=== PATIENT | male | born 1995 | race American Indian/Alaskan Native ===

== ENCOUNTER 2022-02-17 12:48 | Emergency (ER) | payer OTHER ==
[2022-02-17 12:53] VITALS: BP 132/78
--- NOTE | 2022-02-17 14:05 | XRay Report ---
RIGHT ANKLE 3 VIEW(S) INDICATION / CLINICAL INFORMATION: foot injury COMPARISON: None available. FINDINGS: BONES / JOINT(S): No acute fracture or subluxation. No significant arthritis. SOFT TISSUES: No soft tissue defect is noted overlying the posterior aspect of the heel. ADDITIONAL FINDINGS: None. RIGHT FOOT 3 VIEW(S) INDICATION / CLINICAL INFORMATION: foot injury COMPARISON: None available. FINDINGS: BONES / JOINT(S): No acute fracture or subluxation. Mild DJD of the first MTP. SOFT TISSUES: Soft tissue defect noted overlying the posterior aspect of the heel. ADDITIONAL FINDINGS: None. Signer Name: Reid Ho DO Signed: 02/17/2022 2:00 PM Workstation Name: [id number]
[2022-02-17] MEDS ORDERED: KETOROLAC 10 MG TAB PO ONE (14:23)
[2022-02-17] MEDS ORDERED: TETANUS,DIPH,PERTUSS(ACELL) VACCINE 0.5 ML SYRINGE IM ONE (14:23)
[2022-02-17] MEDS ORDERED: LIDOCAINE (1%) 10 MG/1 ML VIAL 20 ML MDV INFILTRATI ONE (14:23)
--- NOTE | 2022-02-17 15:27 | Emergency Department Report ---
- General Chief Complaint: Wound/Laceration Stated Complaint: LACERATION TO RIGHT ANKLE Time Seen by Provider: 02/17/22 14:12 Source: patient, EMS Mode of arrival: Stretcher Limitations: No Limitations - History of Present Illness Initial Comments: 27-year-old black male presents to the emergency department for evaluation of right heel laceration. 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 He got his foot jammed between a forklift and a piece of metal and got a cut on the bottom of his foot. -: Sudden Extremity Location: Right: Foot Place: work Patient Tetanus UTD: No Context: accidental Associated Symptoms: pain - Related Data Home Medications Medication Instructions Recorded Confirmed Last Taken No Known Home Medications [No 02/17/22 02/17/22 Unknown Reported Home Medications] Allergies Allergy/AdvReac Type Severity Reaction Status Date / Time No Known Allergies Allergy Unverified 02/17/22 12:55 ED Review of Systems ROS: Stated complaint: LACERATION TO RIGHT ANKLE Other details as noted in HPI Comment: All other systems reviewed and negative Constitutional: denies: chills, fever ENT: denies: congestion Respiratory: denies: shortness of breath Cardiovascular: denies: chest pain, palpitations Gastrointestinal: denies: abdominal pain, nausea, vomiting Genitourinary: denies: urgency, dysuria Musculoskeletal: denies: back pain Skin: denies: lesions Neurological: denies: headache, weakness ED Past Medical Hx - Past Medical History Previous Medical History?: No - Surgical History Past Surgical History?: No - Social History Smoking Status: Unknown if ever smoked Substance Use Type: None - Medications Home Medications: Home Medications Medication Instructions Recorded Confirmed Last Taken Type No Known Home Medications [No 02/17/22 02/17/22 Unknown History Reported Home Medications] ED Physical Exam - General Limitations: No Limitations General appearance: alert, in no apparent distress - Head Head exam: Present: atraumatic, normocephalic - Eye Eye exam: Present: normal appearance. Absent: conjunctival injection, periorbital swelling, periorbital tenderness - Respiratory Respiratory exam: Absent: respiratory distress - Cardiovascular Cardiovascular Exam: Present: regular rate - GI/Abdominal GI/Abdominal exam: Absent: distended - Extremities Exam Extremities exam: Present: tenderness. Absent: normal inspection, normal capillary refill, pedal edema, joint swelling, calf tenderness - Expanded Lower Extremity Exam Right Foot/Toe exam: Present: laceration Neuro vascular tendon exam: Present: no vascular compromise. Absent: pulse deficit, abnormal cap refill, motor deficit, sensory deficit, extremity cold to touch, pallor 1 - Laceration - Back Exam Back exam: Present: normal inspection - Neurological Exam Neurological exam: Present: alert, oriented X3 - Psychiatric Psychiatric exam: Present: normal affect, normal mood - Skin Skin exam: Present: warm, dry, normal color ED Course Vital Signs 02/17/22 02/17/22 12:48 13:14 Temperature 98.9 F Pulse Rate 80 Respiratory 18 Rate Blood Pressure 132/78 [Left] O2 Sat by Pulse 99 100 Oximetry - Laceration /Wound Repair Right Foot Wound Location: lower extremity (Right heel) Wound Length (cm): 2 Wound's Depth, Shape: superficial, linear Wound Explored: clean Irrigated w/ Saline (ccs): 40 Betadine Prep?: No Anesthesia: 1% Lidocaine Volume Anesthetic (ccs): 2 Wound Repaired With: sutures Suture Size/Type: 3:0 (Vicryl) Number of Sutures: 4 Layer Closure?: No Sterile Dressing Applied?: Yes Progress: Patient tolerated well ED Medical Decision Making - Radiology Data Radiology results: report reviewed, image reviewed Right foot and ankle x-ray: FINDINGS: BONES / JOINT(S): No acute fracture or subluxation. No significant arthritis. SOFT TISSUES: No soft tissue defect is noted overlying the posterior aspect of the heel. ADDITIONAL FINDINGS: None. RIGHT FOOT 3 VIEW(S) INDICATION / CLINICAL INFORMATION: foot injury COMPARISON: None available. FINDINGS: BONES / JOINT(S): No acute fracture or subluxation. Mild DJD of the first MTP. SOFT TISSUES: Soft tissue defect noted overlying the posterior aspect of the heel. ADDITIONAL FINDINGS: None. - Medical Decision Making 27-year-old black male presents to the emergency department for evaluation of right heel laceration. 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 He got his foot jammed between a forklift and a piece of metal and got a cut on the bottom of his foot. Right foot and ankle x-ray without any acute abnormalities noted. Right heel laceration repaired per my procedure note. Tdap updated. Patient discharged home with strict return instruction if he notices any signs of infection. He verbalized understanding of and agreement with plan of care. Critical care attestation.: If time is entered above; I have spent that time in minutes in the direct care of this critically ill patient, excluding procedure time. ED Disposition Clinical Impression: Laceration of right heel Qualifiers: Encounter type: initial encounter Qualified Code(s): S91.311A - Laceration without foreign body, right foot, initial encounter Disposition: HOME / SELF CARE / HOMELESS Is pt being admited?: No Does the pt Need Aspirin: No Condition: Stable Instructions: Laceration Care, Adult, [id number], Sutured Wound Care, [id number] Additional Instructions: Monitor for signs of infection as discussed, and if any noted, return to the emergency department immediately for further evaluation and management. Leave sutures in place, they are dissolvable, and will dissolve in the next 2 to 3 weeks. Follow-up with your primary care provider as needed. Referrals: VIDAL MELENDREZ MD [Staff Physician] - 3-5 Days Forms: Work/School Release Form(ED) Time of Disposition: 15:29
== END 2022-02-17 20:23 | disposition home or self-care (01) ==
LOC: ED 12:48
DX: S91.311A Laceration without foreign body, right foot, initial encounter (principal); X58.XXXA Exposure to other specified factors, initial encounter; Y93.89 Activity, other specified; Y92.89 Other specified places as the place of occurrence of the external cause; Y99.8 Other external cause status
CPT/HCPCS: 90471; 90715; 99283